=== PATIENT | female | born 1980 | race Caucasian/White ===

== ENCOUNTER 2023-11-05 13:00 | Emergency (ER) | payer OTHER ==
[~2023-11-05] VITALS: Ht 154.9 cm; Wt 69.0 kg
[2023-11-05 13:21] VITALS: BP 138/96; PULSE 91; RESP 18; TEMP 99.3; O2SAT 99
[2023-11-05 13:42] VITALS: O2SAT 99
[2023-11-05 15:13] LABS: FLU A ANTIGEN negative (NEGATIVE); FLU B ANTIGEN NEGATIVE (NEGATIVE)
[2023-11-05] MEDS: KETOROLAC 60 MG/2 ML VIAL IM ONE (15:24)
[2023-11-05 15:45] VITALS: BP 133/91; PULSE 84; RESP 18; TEMP 97.8; O2SAT 99
[2023-11-05 15:54] LABS: APPEARANCE,URINE CLEAR (CLEAR); BILIRUBIN,URINE NEGATIVE (NEGATIVE); BLOOD, URINE NEGATIVE (NEGATIVE); COLOR,URINE YELLOW (YELLOW); LEUKOCYTE ESTERASE ,URINE NEGATIVE (NEGATIVE); NITRITE, URINE NEGATIVE (NEGATIVE); PROTEIN,URINE NEGATIVE (NEGATIVE); UGLUCOSE 1+ (NEGATIVE); UROBILINOGEN,URINE 0.2 EU/dL (0.2 - 1)
[2023-11-05] MEDS ORDERED: IBUP-2213 PO (16:29)
== END 2023-11-05 16:42 | disposition home or self-care (01) ==
LOC: MED 13:00
DX: M79.10 Myalgia, unspecified site (principal); Z20.822 Contact with and (suspected) exposure to COVID-19; E11.9 Type 2 diabetes mellitus without complications; I10 Essential (primary) hypertension; Z98.890 Other specified postprocedural states; Z90.49 Acquired absence of other specified parts of digestive tract
CPT/HCPCS: 81003; 81025; 82948; 87426; 87804; 96372; 99283; J1885

== ENCOUNTER 2023-11-18 23:10 | Emergency (ER) | payer OTHER ==
[~2023-11-18] VITALS: Ht 152.4 cm; Wt 68.0 kg
[~2023-11-18 23:10] MED LIST: IBUP-2213 PO
[2023-11-18 23:15] VITALS: BP 153/98; PULSE 79; RESP 18; TEMP 98.2; O2SAT 99
[2023-11-19 00:04] LABS: APPEARANCE,URINE CLEAR (CLEAR); BILIRUBIN,URINE NEGATIVE (NEGATIVE); BLOOD, URINE 3+ (NEGATIVE); COLOR,URINE YELLOW (YELLOW); LEUKOCYTE ESTERASE ,URINE TRACE (NEGATIVE); NITRITE, URINE NEGATIVE (NEGATIVE); PROTEIN,URINE TRACE (NEGATIVE); UGLUCOSE TRACE (NEGATIVE)
[2023-11-19 00:12] LABS: BACTERIA,URINE 10-30 (MOD) /HPF (None Seen); MUCUS,URINE 1+ /LPF (None Seen); RBC,URINE TOO NUMEROUS TO COUN /HPF (0-5); SQUAMOUS EPITHELIAL CELL,UR 0-3 (FEW) /LPF (0-3 (FEW))
[2023-11-19 00:27] LABS: ANION GAP 18.8 (8-16); CARBON DIOXIDE 17.5 mmol/L (21-32); CREATININE 0.4 mg/dL (0.6-1.3); POTASSIUM 3.3 mmol/L (3.5-5.1)
[2023-11-19 00:31] LABS: CALCIUM 5.3 mg/dL (8.5-10.1)
[2023-11-19 00:34] LABS: ALBUMIN 2.8 g/dL (3.4-5.0); BILIRUBIN,DIRECT 0.1 mg/dL (0.0-0.3); TOTAL BILIRUBIN 1.2 mg/dL (0.0-1.0); TOTAL PROTEIN, SERUM 6.8 g/dL (6.4-8.2)
[2023-11-19] MEDS: NACL 0.9% 1,000 ML IV ONE (00:36)
[2023-11-19] MEDS: KETOROLAC 30 MG/ML VIAL IVP ONE (00:37)
[2023-11-19] MEDS: MORPHINE SULFATE 4 MG/ML SYR IVP ONE (02:09)
[2023-11-19 03:32] LABS: BASOPHILS # (AUTO) 0.1 K/uL (0.00-0.22); BASOPHILS % (AUTO) 0.9 % (0.0-2.0); EOSINOPHILS # (AUTO) 0.2 K/uL (0-0.4); HEMATOCRIT 34.9 % (36-48); HEMOGLOBIN 14.4 g/dL (12.0-16.0); LYMPHOCYTES # (AUTO) 2.8 K/uL (2.5-16.5); LYMPHOCYTES % (AUTO) 46.2 % (20.5-51.1); MEAN CORPUSCULAR HEMOGLOBIN 35 pg (27-31); MEAN CORPUSCULAR HGB CONC 41 g/dL (33-37); MONOCYTES # (AUTO) 0.4 K/uL (0.8-1.0); MONOCYTES % (AUTO) 6.6 % (1.7-9.3); NEUTROPHILS # (AUTO) 2.6 K/uL (1.8-7.7); NEUTROPHILS % (AUTO) 42.3 % (42.2-75.2); PLATELET COUNT (AUTO) 217 K/uL (140-450); RED BLOOD CELL COUNT(AUTO) 4.15 MIL/uL (4.20-5.40); RED CELL DISTRIBUTION WIDTH 16.4 % (11.6-13.7); WHITE BLOOD COUNT (AUTO) 6.2 K/uL (4.8-10.8)
[2023-11-19] MEDS ORDERED: NAPR-337 PO (03:57)
[2023-11-19 04:00] VITALS: BP 124/80; PULSE 61; RESP 18; TEMP 98.2; O2SAT 99
[2023-11-20] MEDS ORDERED: CEPH-588 PO (13:20)
[2023-11-20] MEDS ORDERED: ACET-8905 PO (17:34)
== END 2023-11-19 04:00 | disposition home or self-care (01) ==
LOC: MED 23:10
DX: N23 Unspecified renal colic (principal); E11.9 Type 2 diabetes mellitus without complications; I10 Essential (primary) hypertension; Z79.1 Long term (current) use of non-steroidal anti-inflammatories (NSAID)
CPT/HCPCS: 36415; 74176; 80048; 80076; 81001; 81025; 82948; 85025; 87086; 96374; 96375; 99285; J1885; J2270; J7030

== ENCOUNTER 2023-11-20 15:39 | Emergency (ER) | payer OTHER ==
[~2023-11-20] VITALS: Ht 157.5 cm; Wt 72.6 kg
[~2023-11-20 15:39] MED LIST changes: +CEPH-588 PO; +NAPR-337 PO
[2023-11-20 15:46] VITALS: BP 149/96; PULSE 72; RESP 18; TEMP 97.3; O2SAT 98
[2023-11-20] MEDS ORDERED: cefTRIAXone 1,000 MG VIAL ONE (16:36)
[2023-11-20] MEDS: ONDANSETRON 4 MG/2 ML VIAL IVP ONE (16:38)
[2023-11-20] MEDS: MORPHINE SULFATE 4 MG/ML SYR IVP ONE (16:38)
[2023-11-20] MEDS: NACL 0.9% 1,000 ML IV ONE (16:38)
[2023-11-20 16:41] LABS: BASOPHILS % (AUTO) 0.5 % (0.0-2.0); EOSINOPHILS # (AUTO) 0.3 K/uL (0-0.4); EOSINOPHILS % (AUTO) 5.1 % (0.0-4.0); HEMATOCRIT 36.2 % (36-48); LYMPHOCYTES # (AUTO) 1.7 K/uL (2.5-16.5); LYMPHOCYTES % (AUTO) 30.8 % (20.5-51.1); MEAN CORPUSCULAR HEMOGLOBIN 30 pg (27-31); MEAN CORPUSCULAR HGB CONC 36 g/dL (33-37); MEAN CORPUSCULAR VOLUME 84.1 fL (80-94); MONOCYTES # (AUTO) 0.3 K/uL (0.8-1.0); MONOCYTES % (AUTO) 6.2 % (1.7-9.3); NEUTROPHILS # (AUTO) 3.1 K/uL (1.8-7.7); NEUTROPHILS % (AUTO) 57.4 % (42.2-75.2); PLATELET COUNT (AUTO) 201 K/uL (140-450); RED CELL DISTRIBUTION WIDTH 16.6 % (11.6-13.7); WHITE BLOOD COUNT (AUTO) 5.4 K/uL (4.8-10.8)
[2023-11-20 17:06] LABS: ANION GAP 15.1 (8-16); CALCIUM 7.4 mg/dL (8.5-10.1); CARBON DIOXIDE 23.6 mmol/L (21-32); CREATININE 0.3 mg/dL (0.6-1.3); POTASSIUM 3.7 mmol/L (3.5-5.1)
[2023-11-20] MEDS ORDERED: ACET-8905 PO (17:34)
[2023-11-20 18:03] VITALS: BP 138/89; PULSE 68; RESP 16; TEMP 97.3; O2SAT 98
== END 2023-11-20 17:58 | disposition home or self-care (01) ==
LOC: MED 15:39
DX: N12 Tubulo-interstitial nephritis, not specified as acute or chronic (principal); E11.9 Type 2 diabetes mellitus without complications; I10 Essential (primary) hypertension; Z79.1 Long term (current) use of non-steroidal anti-inflammatories (NSAID); Z79.2 Long term (current) use of antibiotics
CPT/HCPCS: 36415; 80048; 85025; 96365; 96375; 99284; J0696; J2270; J2405; J7030